=== PATIENT | female | born 1935 | race Caucasian/White ===

== ENCOUNTER → 2018-03-31 | Outpatient (CLI) | payer MEDICARE ==
[~2018-03-31] MED LIST: ASPIRIN PO; ATELVIA35 MG PO; CALCIUM600 MG PO; CENTRUM SILVER1 EAC1 PO; CO Q-10100 MG PO; CRESTOR10 MG PO; FLAX SEED OIL1000 MG PO; GABAPENTIN100 MG PO; GLUCOTROL XL10 MG PO; GLUMETZA1000 MG PO; JANUVIA100 MG PO; LANTUS100 UNIT/1 SQ; LISINOPRIL10 MG PO; MAGNESIUM OXIDE PO; NEXIUM40 MG PO; NOVOLOG100 UNIT/1 SQ; PROMETHAZINE HC25 M1 PO; SIMETHICONE80 MG PO; TRILIPIX135 MG PO; ULTRAM 50MG50 MG PO; VITAMIN B12 PO; VITAMIN D3400 UNI1 PO; XANAX0.25 MG PO; ZOLOFT100 MG PO
--- NOTE | 2018-03-31 14:33 | Diagnostic Imaging Report ---
PROCEDURE:X-RAY RIGHT SHOULDER, COMPLETE COMPARISON:None. INDICATIONS:RIGHT SHOULDER PAIN FINDINGS: There are no fractures, dislocations, lytic or blastic lesions. The bones are well-mineralized. The soft-tissues are unremarkable. Mild degenerative changes of the right a.c. and glenohumeral joints. CONCLUSION: Mild degenerative changes of the right a.c. and glenohumeral joints. Keegan Emmanuel M.D. Dictated by: Keegan Emmanuel M.D. on 03/31/2018 at 14:35 Electronically approved by: Keegan Emmanuel M.D. on 03/31/2018 at 14:35
== END ==
LOC: RAD 13:23
PROVIDERS: ATTEND Family Medicine
DX: M25.511 Pain in right shoulder (principal)

== ENCOUNTER → 2018-04-08 | Outpatient (CLI) | payer MEDICARE ==
--- NOTE | 2018-04-08 11:06 | Diagnostic Imaging Report ---
Exam: Brain MRI without IV contrast History: Dizziness, giddiness Comparison studies: None Technique: Sagittal and axial T2 FS, axial DWI, axial T2*GRE, axial T1 FLAIR and axial coronal T1 flair. Intravenous contrast: None Findings: Scalp: Normal in signal. No masses. Bone marrow: Normal in signal intensity. Brain sulci: Mildly prominent. Ventricles: Mild compensatory dilatation. No hydrocephalus. Parenchyma: No mass, hemorrhage or acute ischemia. No abnormal restricted diffusion. A few scattered T2 FLAIR hyperintense signal changes in the supratentorial white matter are nonspecific but most compatible with chronic small vessel ischemic changes. There are mild confluent T2 FLAIR hyperintense signal changes in the bifrontal periventricular white matter. Suprasellar region: No abnormalities. Craniocervical junction: Patent foramen magnum. No Chiari malformation. Vessels: Normal flow-voids in the arteries and sinuses. Incidental finding's: Intraocular lens replacement related to previous cataract surgery. IMPRESSION: 1. Mild generalized volume loss. 2. Mild supratentorial chronic microvascular ischemic changes. Signed by: Dr. Steve Sharif M.D. on 04/08/2018 11:02 AM
--- NOTE | 2018-04-09 13:24 | Diagnostic Imaging Report ---
History: Fall Comparison studies: None Technique: Sagittal, coronal and axial T2 , sagittal T1 and IR, axial spin density oblique. Intravenous contrast: None Findings: Number of lumbar vertebral bodies:5 Alignment: Normal lordosis.No scoliosis. Soft tissues: No T2 hyperintense inflammatory changes. Paraspinal muscles: No signal abnormalities. No atrophy. Lower thoracic cord:Normal in signal and morphology. The tip of the conus is at L1. Cauda equina: No masses. No arachnoiditis. Vertebrae: Normal in height and signal intensity. Fat-containing lesion at T12 vertebral body posterior aspect, most likely related to hemangioma. Other smaller hemangiomas are seen at the lower lumbar spine vertebral bodies. No compression fractures, infection or neoplasm. Degenerative changes: Disc degeneration with loss of T2 signal throughout the lumbar spine without significant endplate edema. L1-L2: Mild diffuse disc bulge and small central annular fissure without significant canal stenosis or foraminal narrowing. L2-L3: No abnormalities. L3-L4: Mild diffuse bulge, moderate right and mild left facet hypertrophy along with ligamentum flavum thickening results in no significant canal stenosis or foraminal narrowing. L4-L5: Diffuse disc bulge with superimposed right central and subarticular disc protrusion and mild superior migration, moderate facet hypertrophy and ligamentum flavum thickening results in moderate canal stenosis, obliteration of the right subarticular recesses and moderate to severe right foraminal narrowing. Fluid at the bilateral facet joint with inferiorly and posteriorly projecting subcentimeter synovial cysts. L5-S1: Diffuse disc bulge and moderate facet hypertrophy results in mild canal stenosis and mild right foraminal narrowing. Additional findings: None IMPRESSION: Moderate canal stenosis, obliteration of the right subarticular recesses and moderate to severe right foraminal narrowing at L4-L5. Disc material impinges on the descending L5 nerve root and abuts the exiting L4 nerve root on the right side. Synovitis changes at the lower lumbar spine with moderate facet hypertrophy. Signed by: DR Carloz Boothe M.D. on 04/09/2018 1:20 PM
== END ==
LOC: MRI 10:00
PROVIDERS: ATTEND Family Medicine
DX: M54.16 Radiculopathy, lumbar region (principal); M25.511 Pain in right shoulder; R42 Dizziness and giddiness
CPT/HCPCS: 70551; 72148

== ENCOUNTER 2018-09-28 09:46 | Emergency (ER) | payer MEDICARE, OTHER ==
[~2018-09-28] VITALS: Ht 160 cm; Wt 59.0 kg
--- OUTSIDE RECORDS SUMMARY | 2018-09-28 09:50 | XMS REPORT ---
Author Author [facility] Address Unknown Phone Unavailable Care Team Providers Care [employer] Attendant Name Role Phone Caterina EDMONDS Unavailable Unavailable Problems This patient has no known problems. Allergies, Adverse Reactions, Alerts This patient has no known allergies or adverse reactions. Medications This patient has no known medications. Results Test Description Test Time Test Comments Text Results Atomic Results Result Comments MRI SPINE LUMBAR WO 2018-04-09 12:57:00 [place] [address] Patient Name: JAMES OSULLIVAN MR #: [id number] : 1935 Age/Sex: 82/F Req #: [id number] Adm Physician: Ordered by: DARLINE EDMONDS MD Report #: [id number] Location: MRI Room/Bed: Procedure: [id number] MRI/MRI SPINE LUMBAR WO Exam Date: Exam Time: REPORT STATUS: Signed History: Fall Comparison studies: None Technique: Sagittal, coronal and axial T2 , sagittal T1 and IR, axial spin density oblique. Intravenous contrast: None Findings: Number of lumbar vertebral bodies:5 Alignment: Normal lordosis.No scoliosis. Soft tissues: No T2 hyperintense inflammatory changes. Paraspinal muscles: No signal abnormalities. No atrophy. Lower thoracic cord:Normal in signal and morphology. The tip of the conus is at L1. Cauda equina: No masses. No arachnoiditis. Vertebrae: Normal in height and signal intensity. Fat-containing lesion at T12 vertebral body posterior aspect, most likely related to hemangioma. Other smaller hemangiomas are seen at the lower lumbar spine vertebral bodies. No compression fractures, infection or neoplasm. Degenerative changes: Disc degeneration with loss of T2 signal throughout the lumbar spine without significant endplate edema. L1-L2: Mild diffuse disc bulge and small central annular fissure without significant canal stenosis or foraminal narrowing. L2-L3: No abnormalities. L3-L4: Mild diffuse bulge, moderate right and mild left facet hypertrophy along with ligamentum flavum thickening results in no significant canal stenosis or foraminal narrowing. L4-L5: Diffuse disc bulge with superimposed right central and subarticular disc protrusion and mild superior migration, moderate facet hypertrophy and ligamentum flavum thickening results in moderate canal stenosis, obliteration of the right subarticular recesses and moderate to severe right foraminal narrowing. Fluid at the bilateral facet joint with inferiorly and posteriorly projecting subcentimeter synovial cysts. L5-S1: Diffuse disc bulge and moderate facet hypertrophy results in mild canal stenosis and mild right foraminal narrowing. Additional findings: None IMPRESSION: Moderate canal stenosis, obliteration of the right subarticular recesses and moderate to severe right foraminal narrowing at L4-L5. Disc material impinges on the descending L5 nerve root and abuts the exiting L4 nerve root on the right side. Synovitis changes at the lower lumbar spine with moderate facet hypertrophy. Signed by: DR Carloz Boothe M.D. on 04/09/2018 1:20 PM Dictated By: CARLOZ WITT MD 1320 Transcribed By: HECTOR on 04/09/18 1320 COPY TO: DARLINE EDMONDS MD MRI BRAIN WO 2018-04-08 10:58:00 [place] [address] Patient Name: JAMES OSULLIVAN MR #: [id number] : 1935 Age/Sex: 82/F Req #: [id number] Adm Physician: Ordered by: DARLINE EDMONDS MD Report #: [id number] Location: MRI Room/Bed: Procedure: MRI/MRI BRAIN WO Exam Date: Exam Time: REPORT STATUS: Signed Exam: Brain MRI without IV contrast History: Dizziness, giddiness Comparison studies: None Technique: Sagittal and axial T2 FS, axial DWI, axial T2*GRE, axial T1 FLAIR and axial coronal T1 flair. Intravenous contrast: None Findings: Scalp: Normal in signal. No masses. Bone marrow: Normal in signal intensity. Brain sulci: Mildly prominent. Ventricles: Mild compensatory dilatation. No hydrocephalus. Parenchyma: No mass, hemorrhage or acute ischemia. No abnormal restricted diffusion. A few scattered T2 FLAIR hyperintense signal changes in the supratentorial white matter are nonspecific but most compatible with chronic small vessel ischemic changes. There are mild confluent T2 FLAIR hyperintense signal changes in the bifrontal periventricular white matter. Suprasellar region: No abnormalities. Craniocervical junction: Patent foramen magnum. No Chiari malformation. Vessels: Normal flow-voids in the arteries and sinuses. Incidental finding's: Intraocular lens replacement related to previous cataract surgery. IMPRESSION: 1. Mild generalized volume loss. 2. Mild supratentorial chronic microvascular ischemic changes. Signed by: Dr. Alicia Sharif M.D. on 04/08/2018 11:02 AM Dictated By: ALCIIA SHARIF MD 1102 Transcribed By: HECTOR on 04/08/18 110 COPY TO: DARLINE EDMONDS MD [place] [address] Patient Name: JAMES OSULLIVAN MR #: [id number] : 1935 Age/Sex: 82/F Req #: [id number] Adm Physician: Ordered by: DARLINE EDMONDS MD Report #: [id number] Location: [facility] Room/Bed: Procedure: [id number] DX/SHOULDER RIGHT COMPLETE Exam Date: 03/31/18 Exam Time: 1350 REPORT STATUS: Signed PROCEDURE: X-RAY RIGHT SHOULDER, COMPLETE COMPARISON: None. INDICATIONS: RIGHT SHOULDER PAIN FINDINGS: There are no fractures, dislocations, lytic or blastic lesions. The bones are well- mineralized. The soft-tissues are unremarkable. Mild degenerative changes of the right a.c. and glenohumeral joints. CONCLUSION: Mild degenerative changes of the right a.c. and glenohumeral joints. Keegan Frias M.D. Dictated by: Keegan Frias M.D. on 03/31/2018 at 14:35 Electronically approved by: Keegan Frias M.D. on 03/31/2018 at 14:35 Dictated By: VARGAS FRIAS MD, MD 1435 Transcribed By: VAINA on 03/31/18 1435 COPY TO: DARLINE EDMONDS MD
--- NOTE | 2018-09-28 11:30 | Diagnostic Imaging Report ---
PROCEDURE:CXR 2 VIEW - HOPD COMPARISON:None. INDICATIONS:chest pain and sob since waking up hx htn FINDINGS:The lungs are well-inflated. No focal airspace consolidation, pleural effusion, or pneumothorax. Mild prominence of the pulmonary interstitium likely reflects age-related fibrotic change. Atherosclerotic calcification of the thoracic aorta with otherwise normal cardiomediastinal contour. Prominence of the right paratracheal region of the mediastinum likely reflects great vessel tortuosity.No overt pulmonary edema. No acute osseous abnormalities. Healed left anterior rib fracture deformities. Multilevel degenerative disc changes of the thoracic spine. CONCLUSION: No acute cardiopulmonary abnormality. Dictated by: Steve Easley M.D. on 09/28/2018 at 11:40 Electronically approved by: Steve Easley M.D. on 09/28/2018 at 11:40
[2018-09-28 13:06] VITALS: BP 173/94
== END 2018-09-28 13:21 | disposition home or self-care (01) ==
LOC: FSED 09:46
DX: R00.2 Palpitations (principal); I10 Essential (primary) hypertension; E11.9 Type 2 diabetes mellitus without complications
CPT/HCPCS: 71046; 93005; 99283

== ENCOUNTER 2019-05-30 11:00 | Outpatient (RCR) | payer MEDICARE | END 2019-06-01 | LOC: PT 11:00 | PROVIDERS: ATTEND Family Medicine | DX: S72.141A Displaced intertrochanteric fracture of right femur, initial encounter for closed fracture (principal); M25.551 Pain in right hip; M62.81 Muscle weakness (generalized); R26.2 Difficulty in walking, not elsewhere classified ==

== ENCOUNTER 2019-07-01 10:43 | Outpatient (RCR) | payer MEDICARE | END 2019-07-02 | LOC: PT 10:43 | PROVIDERS: ATTEND Family Medicine | DX: S72.8X1A Other fracture of right femur, initial encounter for closed fracture (principal); M62.81 Muscle weakness (generalized); M25.551 Pain in right hip; R26.2 Difficulty in walking, not elsewhere classified | CPT/HCPCS: 97139 ==

== ENCOUNTER → 2019-08-01 | Outpatient (RCR) | payer MEDICARE | LOC: PT 07-08 10:55 | PROVIDERS: ATTEND Family Medicine | DX: S72.141A Displaced intertrochanteric fracture of right femur, initial encounter for closed fracture (principal); M62.81 Muscle weakness (generalized); M25.551 Pain in right hip; R26.2 Difficulty in walking, not elsewhere classified | CPT/HCPCS: 97139 ==

== ENCOUNTER 2019-08-18 11:00 | Outpatient (RCR) | payer MEDICARE | END 2019-09-01 | LOC: PT 11:00 | PROVIDERS: ATTEND Family Medicine | DX: S72.141A Displaced intertrochanteric fracture of right femur, initial encounter for closed fracture (principal); M25.551 Pain in right hip; M62.81 Muscle weakness (generalized); R26.2 Difficulty in walking, not elsewhere classified | CPT/HCPCS: 97139 ==

== ENCOUNTER 2019-10-02 15:26 | Emergency (ER) | payer MEDICARE ==
[~2019-10-02] VITALS: Ht 160 cm; Wt 56.2 kg
--- NOTE | 2019-10-02 17:24 | Diagnostic Imaging Report ---
Hip complete Indication: Fall Technique: AP and frogleg views of right hip obtained. Comparison: None Findings: Intramedullary juan and screw transfix an intertrochanteric fracture into anatomic alignment. There is callus formation at the fracture site. No acute fracture associated with the hardware. There is a mildly displaced fracture of the right superior pubic symphysis without callus formation. No diastases of the pubic symphysis. The left hip is intact and normally situated. There are degenerative changes of the lower lumbar spine. IMPRESSION: Mildly displaced fracture of the right pubic symphysis. ORIF of right femur fracture without acute fracture associated with the hardware. Signed by: Dr. Angy Cardenas MD on 10/02/2019 5:21 PM
--- NOTE | 2019-10-02 17:26 | Diagnostic Imaging Report ---
Femur right CPT code: 37669 Indication: Fall Technique: AP and lateral views of right femur obtained Comparison: None Findings: Intramedullary juan and screw transfix an intertrochanteric fracture into anatomic alignment. No acute fracture or lucency associated with the hardware. There is callus formation at the fracture site. The femoral head is appropriately positioned within the acetabulum. There is a mildly displaced fracture of the right pubic symphysis. No diastases the pubic symphysis or right sacroiliac joint. Calcifications are present throughout the arterial structures. The patella and proximal lower extremity are intact and normal in appearance. IMPRESSION: 1. Mildly displaced fracture of the right pubic symphysis. 2. ORIF of right intertrochanteric fracture without evidence of acute fracture associated with the hardware or hardware failure. No femoral dislocation. Signed by: Dr. Angy Cardenas MD on 10/02/2019 5:23 PM
[2019-10-02 17:48] VITALS: BP 165/84
== END 2019-10-02 18:05 | disposition home or self-care (01) ==
LOC: FSED 15:26
DX: M25.551 Pain in right hip (principal); S32.511A Fracture of superior rim of right pubis, initial encounter for closed fracture; W18.30XA Fall on same level, unspecified, initial encounter; Y92.008 Other place in unspecified non-institutional (private) residence as the place of occurrence of the external cause
CPT/HCPCS: 99283

== ENCOUNTER 2019-12-07 13:57 | Outpatient (RCR) | payer MEDICARE | END 2019-12-31 | LOC: PT 13:57 | PROVIDERS: ATTEND Orthopaedic Surgery | DX: S32.810D Multiple fractures of pelvis with stable disruption of pelvic ring, subsequent encounter for fracture with routine healing (principal); M25.551 Pain in right hip; M62.81 Muscle weakness (generalized); R26.9 Unspecified abnormalities of gait and mobility | CPT/HCPCS: 97139 ==

== ENCOUNTER → 2020-02-24 | Outpatient (CLI) | payer MEDICARE ==
--- NOTE | 2020-02-24 12:17 | Diagnostic Imaging Report ---
EXAMINATION: RIBS UNILAT W/CXR INDICATION: Fall, rib pain COMPARISON: None FINDINGS: LINES/TUBES:None LUNGS:The lungs are moderately inflated. No focal consolidation or pulmonary edema. Mild left basilar subsegmental atelectasis. PLEURA:No pleural effusion or pneumothorax. MEDIASTINUM:The cardiomediastinal silhouette appears normal in size and shape. Atherosclerotic calcifications of the thoracic aorta. BONES/SOFT TISSUES:Multiple right and left rib fractures in various stages of healing including the right sixth posterior lateral rib and left posterior lateral fourth and sixth rib fractures. No acute displaced rib fracture. ABDOMEN:No free air under the diaphragm. IMPRESSION: No acute displaced rib fracture. Multiple bilateral rib fractures in various stages of healing as above. No focal pneumonia or pulmonary edema. Mild left basilar subsegmental atelectasis. Signed by: Julieth Rossi MD on 02/24/2020 12:13 PM
== END ==
LOC: RAD 11:24
PROVIDERS: ATTEND Family Medicine
DX: R07.81 Pleurodynia (principal)
CPT/HCPCS: 71101

== ENCOUNTER → 2020-07-23 | Outpatient (CLI) | payer MEDICARE | LOC: CARD 14:05 | PROVIDERS: ATTEND Family Medicine | DX: R09.89 Other specified symptoms and signs involving the circulatory and respiratory systems (principal) | CPT/HCPCS: 93880 ==

== ENCOUNTER → 2021-05-08 | Outpatient (CLI) | payer MEDICARE ==
[~2021-05-08] MED LIST changes: +IOPAMIDOL 370 MG/ML 200 ML INFUS..BTL INJ ONE; +SODIUM CHLORIDE 0.9% 100 ML ONE; +SODIUM CHLORIDE 0.9% 500ML 500 ML ONE
== END ==
LOC: CT 13:05
PROVIDERS: ATTEND Family Medicine
DX: R55 Syncope and collapse (principal); H81.10 Benign paroxysmal vertigo, unspecified ear; I65.23 Occlusion and stenosis of bilateral carotid arteries
CPT/HCPCS: 70498; 96360; J7040; J7050; Q9967

== ENCOUNTER → 2021-05-15 | Outpatient (CLI) | payer MEDICARE ==
[~2021-05-15] MED LIST changes: -IOPAMIDOL 370 MG/ML 200 ML INFUS..BTL INJ ONE; -SODIUM CHLORIDE 0.9% 100 ML ONE; -SODIUM CHLORIDE 0.9% 500ML 500 ML ONE
== END ==
LOC: MRI 11:56
PROVIDERS: ATTEND Family Medicine
DX: M54.16 Radiculopathy, lumbar region (principal)
CPT/HCPCS: 72148

== ENCOUNTER → 2021-06-11 | Day surgery (SDC) | payer MEDICARE ==
[~2021-06-11] MED LIST changes: +ATIVAN1 MG PO; +BUPROPION HCL100 MG PO; +CHOLESTYRAMINE R5 GM PO; +COLESTIPOL HCL1 GM PO; +FENTANYL CITRATE/PF 100MCG/2 ML INJ ONE; +HYDROCODONE/APAP 5MG-325MG TAB ONE; +LACTATED RINGER'S 1,000 ML ONE; +LIDOCAINE HCL 1% LOCAL INJ 20 ML VIAL ONE; +LIDOCAINE HCL 2% LOCAL INJ 5 ML SDV VIAL INJ ONE; +METOPROLOL TART25 MG PO; +MIDAZOLAM HCL 2 MG/2 ML VIAL ONE; +OMEPRAZOLE40 MG PO; +POVIDONE IODINE 0.05% 0.05 % ML PO ONE; +PRAVASTATIN SOD20 MG PO; +PROPOFOL IV EMULSION 10 MG/ML 20 ML VIAL ONE; +PROTONIX40 MG PO; +SERTRALINE HCL100 MG PO; +SIMVASTATIN40 MG PO; +SODIUM CHLORIDE 0.9% 250ML 250 ML ONE; +TRESIBA FL100 UNIT/1 SC; +TRICOR145 MG PO; +VOLTAREN ARTHRI20 GM TOP; +ZOLPIDEM TARTRAT5 MG PO
== END | disposition home or self-care (01) ==
LOC: EDSTATUS 05-29 09:00 → DX 10:26
PROVIDERS: ATTEND Radiology Vascular & Interventional Radiology
DX: M48.56XA Collapsed vertebra, not elsewhere classified, lumbar region, initial encounter for fracture (principal); R55 Syncope and collapse; H81.10 Benign paroxysmal vertigo, unspecified ear; I65.29 Occlusion and stenosis of unspecified carotid artery; Z01.812 Encounter for preprocedural laboratory examination; Z01.818 Encounter for other preprocedural examination; Z20.822 Contact with and (suspected) exposure to COVID-19
CPT/HCPCS: 22514; 71046; J0690; J2001; J2250; J3010; J7050; J7121; U0002

== ENCOUNTER 2024-06-30 10:00 | Outpatient (RCR) | payer MEDICARE ==
[~2024-06-30 10:00] MED LIST changes: -FENTANYL CITRATE/PF 100MCG/2 ML INJ ONE; -HYDROCODONE/APAP 5MG-325MG TAB ONE; -LACTATED RINGER'S 1,000 ML ONE; -LIDOCAINE HCL 1% LOCAL INJ 20 ML VIAL ONE; -LIDOCAINE HCL 2% LOCAL INJ 5 ML SDV VIAL INJ ONE; -MIDAZOLAM HCL 2 MG/2 ML VIAL ONE; -POVIDONE IODINE 0.05% 0.05 % ML PO ONE; -PROPOFOL IV EMULSION 10 MG/ML 20 ML VIAL ONE; -SODIUM CHLORIDE 0.9% 250ML 250 ML ONE
== END 2024-07-02 ==
LOC: PT 10:00
PROVIDERS: ATTEND Podiatrist Foot & Ankle Surgery
DX: M76.70 Peroneal tendinitis, unspecified leg (principal)

== ENCOUNTER 2024-07-28 12:56 | Outpatient (RCR) | payer MEDICARE | END 2024-08-01 | LOC: PT 12:56 | PROVIDERS: ATTEND Podiatrist Foot & Ankle Surgery | DX: M76.62 Achilles tendinitis, left leg (principal); M76.72 Peroneal tendinitis, left leg ==

== ENCOUNTER 2024-08-11 10:38 | Outpatient (RCR) | payer MEDICARE | END 2024-09-01 | LOC: PT 10:38 | PROVIDERS: ATTEND Podiatrist Foot & Ankle Surgery | DX: M76.72 Peroneal tendinitis, left leg (principal); M76.62 Achilles tendinitis, left leg ==